=== PATIENT | female | born 1990 | race Hispanic/Latino ===

== ENCOUNTER → 2022-01-05 | Outpatient (CLI) | payer BC | LOC: WCC 11:57 | PROVIDERS: ATTEND Internal Medicine Infectious Disease | DX: T81.89XA Other complications of procedures, not elsewhere classified, initial encounter (principal); Y83.8 Other surgical procedures as the cause of abnormal reaction of the patient, or of later complication, without mention of misadventure at the time of the procedure; N61.1 Abscess of the breast and nipple; L08.89 Other specified local infections of the skin and subcutaneous tissue; B96.89 Other specified bacterial agents as the cause of diseases classified elsewhere ==

== ENCOUNTER → 2022-01-11 | Outpatient (CLI) | payer BC | LOC: US 12:29 | PROVIDERS: ATTEND Internal Medicine Infectious Disease | DX: T81.89XA Other complications of procedures, not elsewhere classified, initial encounter (principal) ==

== ENCOUNTER → 2022-01-12 | Outpatient (CLI) | payer BC | LOC: WCC 11:12 | PROVIDERS: ATTEND Internal Medicine Infectious Disease | DX: T81.89XA Other complications of procedures, not elsewhere classified, initial encounter (principal); Y83.8 Other surgical procedures as the cause of abnormal reaction of the patient, or of later complication, without mention of misadventure at the time of the procedure; N61.1 Abscess of the breast and nipple; L08.89 Other specified local infections of the skin and subcutaneous tissue; B96.89 Other specified bacterial agents as the cause of diseases classified elsewhere ==

== ENCOUNTER → 2022-01-26 | Outpatient (CLI) | payer BC ==
[~2022-01-26] MED LIST: LIDOCAINE VISC 2% SOLN 15 ML UDC ONE
== END ==
LOC: WCC 11:44
PROVIDERS: ATTEND Internal Medicine Infectious Disease
DX: T81.89XA Other complications of procedures, not elsewhere classified, initial encounter (principal); Y83.8 Other surgical procedures as the cause of abnormal reaction of the patient, or of later complication, without mention of misadventure at the time of the procedure; N61.1 Abscess of the breast and nipple; L08.89 Other specified local infections of the skin and subcutaneous tissue; B96.89 Other specified bacterial agents as the cause of diseases classified elsewhere

== ENCOUNTER → 2022-02-02 | Outpatient (CLI) | payer BC | LOC: WCC 12:42 | PROVIDERS: ATTEND Internal Medicine Infectious Disease | DX: T81.89XA Other complications of procedures, not elsewhere classified, initial encounter (principal); Y83.8 Other surgical procedures as the cause of abnormal reaction of the patient, or of later complication, without mention of misadventure at the time of the procedure; N61.1 Abscess of the breast and nipple; L08.89 Other specified local infections of the skin and subcutaneous tissue; B96.89 Other specified bacterial agents as the cause of diseases classified elsewhere ==

== ENCOUNTER → 2022-02-09 | Outpatient (CLI) | payer BC ==
[~2022-02-09] MED LIST changes: +COLLAGENASE OINTMENT 30 GM TUBE ONE; -LIDOCAINE VISC 2% SOLN 15 ML UDC ONE
== END ==
LOC: WCC 11:51
PROVIDERS: ATTEND Internal Medicine Infectious Disease
DX: T81.89XA Other complications of procedures, not elsewhere classified, initial encounter (principal); Y83.8 Other surgical procedures as the cause of abnormal reaction of the patient, or of later complication, without mention of misadventure at the time of the procedure; N61.1 Abscess of the breast and nipple; L08.89 Other specified local infections of the skin and subcutaneous tissue; B96.89 Other specified bacterial agents as the cause of diseases classified elsewhere